=== PATIENT | female | born 1955 | race Caucasian/White ===

== ENCOUNTER → 2016-10-06 | Outpatient (CLI) | payer OTHER | LOC: BMCIMAGING 08:37 | DX: R93.8 Abnormal findings on diagnostic imaging of other specified body structures (principal); N95.0 Postmenopausal bleeding; N83.9 Noninflammatory disorder of ovary, fallopian tube and broad ligament, unspecified; N88.8 Other specified noninflammatory disorders of cervix uteri | CPT/HCPCS: G0202 ==

== ENCOUNTER → 2016-10-21 | Outpatient (CLI) | payer OTHER | LOC: BMCIMAGING 12:46 | DX: R92.8 Other abnormal and inconclusive findings on diagnostic imaging of breast (principal) | CPT/HCPCS: G0204 ==

== ENCOUNTER 2016-11-29 07:11 | Day surgery (SDC) | payer OTHER ==
[2016-11-29] MEDS ORDERED: LR 1,000 ML IV ONE (07:45)
[2016-11-29 07:59] LABS: % IMMATURE GRANULYOCYTES 0.2 % (0.0-1.1); ABSOLUTE IMMATURE GRANULOCYTES 0.02 10^3/uL (0.00-0.10); ADD DIFF? NO; ADD MORPH? NO; ADD SCAN? NO; ATYPICAL LYMPHOCYTE FLAG 0 (0-99); FRAGMENT RBC FLAG 0 (0-99); HEMATOCRIT 45.5 % (38.0-47.0); HEMOGLOBIN 15.6 g/dL (12.6-16.3); LEFT SHIFT FLG 0 (0-99); LIPEMIA HEMOLYSIS FLAG 90 (0-99); MEAN CELL HEMOGLOBIN 29.5 pg (27.9-34.1); MEAN CELL HEMOGLOBIN CONCENTR. 34.3 g/dL (32.4-36.7); MEAN CELL VOLUME 86.2 fL (81.5-99.8); MEAN PLATELET VOLUME 10.9 fL (8.7-11.7); PLATELET CLUMPS FLAG 10 (0-99); PLATELET COUNT 286 10^3/uL (150-400); RED BLOOD CELL COUNT 5.28 10^6/uL (4.18-5.33)
[2016-11-29] MEDS ORDERED: BUPIVACAINE 0.25% 30 ML SDV ONE (08:57)
[2016-11-29] MEDS ORDERED: SILVER NITRATE APPLICATOR 1 APPL TP ONE ×2 (08:57→11:43)
[2016-11-29 09:32] LABS: COLOR PALE YELLOW; LEUKOCYTE ESTERASE,URINE NEGATIVE (NEGATIVE); NITRITE,URINE NEGATIVE (NEGATIVE)
[2016-11-29] MEDS ORDERED: fentaNYL 100 MCG/2 ML INJ ONE ×3 (09:32→12:20)
[2016-11-29] MEDS ORDERED: PROPOFOL 200 MG/20 ML VIAL ONE (09:34)
[2016-11-29] MEDS ORDERED: OXYCODONE/APAP 5/325 TAB ONE (14:15)
--- NOTE | 2016-12-10 14:23 | GOP ---
[f rep st] OPERATIVE REPORT DATE OF OPERATION: 11/29/2016 SURGEON: Araceli Buckley MD ELECTRIC [employer]ZOR ASSEMBLER: None. ANESTHESIA: General. PREOPERATIVE DIAGNOSIS: 1. Complex left adnexal mass. 2. Endometrial mass. POSTOPERATIVE DIAGNOSIS: 1. Complex left adnexal mass. 2. Endometrial mass. PROCEDURE PERFORMED: 1. Laparoscopic bilateral salpingo-oophorectomy. 2. Hysteroscopy with dilation and curettage and hysteroscopic polypectomy and myomectomy. FINDINGS: 1. Normal right fallopian tube and ovary. 2. Abnormal left adnexal cyst that was attached to the lateral posterior uterine wall; appeared to be the suspected left ovary. No other fallopian tube was visualized and no connection to the left p elvic sidewall with an infundibular pelvic ligament noted. 3. The intrauterine cavity showed 2 small masses: 1 small polyp and mass close to the left ostia, and 1 larger mass close to the right ostia, that clinically seems consistent with a submucosal fibro id. SPECIMENS: 1. Right fallopian tube and ovary. 2. Left adnexal cyst. 1. Endometrial curettings and polyp and/or fibroid. 3. ESTIMATED BLOOD LOSS: Less than 25 cc. INDICATIONS: Patient is a 61-year-old, 3, para 1, abortus 2 menopausal female on bio-identi eb hormones, who presented with vaginal bleeding and was noted to have an endometrial mass found on ultrasound, as well as a complex left adnexal cyst. She agreed to surgical management for further evaluation. DESCRIPTION OF PROCEDURE: Patient was taken to the operating room where general anesthesia was foun d to be adequate. Patient was prepared and draped in normal sterile fashion in the dorsal lithotomy position. A weighted speculum was placed in the patient's vagina, and a Cartwright retractor used to vis ualize the cervix clearly. A single-toothed tenaculum was placed on the anterior lip of the cervix, and the cervix was gently dilated up to 6 mm using Hegar dilators. A 0 degree 5 mm TruClear hyster oscope was placed into the cervix and advanced into the uterine cavity without complications. The i ntrauterine cavity was visualized clearly, and 2 small masses were noted. The 2.9 morcellator was u sed to excise these masses under direct visualization. Due to the consistency and visualization of the removal, it was suspected that the right-sided mass was a fibroid. A visual D and C was then pe rformed using the morcellator. The hysteroscope was then removed, and a sharp curettage was perform ed circumferentially. All specimens were sent to Pathology. The acorn uterine manipulator was then placed into the cervix to provide a means to manipulate the uterus, and attention was then turned t o the patient's abdomen. All operating personnel then changed into new gowns and gloves, and attention was turned to the sandi ent's umbilicus. A 10 mm skin incision was made after injecting 0.25% Marcaine. The incision was m giovanny in a vertical fashion. A Veress needle was placed into the incision and into the peritoneal cav ity while tenting the abdominal wall. Intraperitoneal placement was confirmed with use of a water-f illed syringe and appropriate entry CO2 gas pressures. The abdomen was then insufflated with CO2 ga s to a pressure of 15 mmHg. The Veress needle was removed, and a 10 mm trocar was placed through th is incision into the peritoneal cavity under direct visualization with the laparoscope. There were no complications with entry. Attention was turned to the patient's left side where, after injection of 0.25% Marcaine, a 5 mm tro car was placed 2 cm superior and anterior to the anterior iliac spine on the left side. In a simila r fashion, a trocar was placed on the right side. First the right tube was grasped with a grasper a nd then excised using the gyrus cautery, laterally to medially, excising the right tube and ovary. All pedicles were hemostatic, and specimen was placed in the anterior cul-de-sac. Attention was turned to the left adnexal cyst. It was clear that the cyst was attached to the poste rolateral uterine wall, and there was no clear plane of dissection between them. There were some fi lmy adhesions overlying the cyst, which were taken down using the [place]'s and cautery. The cyst was then excised from the uterine wall using the gyrus cautery. There was some leakage of fluid fro m the cyst during this dissection, and the dissection was then continued easily to remove it from al l its attachments. There was no clear connection between the cyst and the infundibular pelvic ligam ent on the left side, nor was there a clear fallopian tube on this side identified. As the mass was excised, entry into the cavity was made, and it was excised from its attachments to the posterior u terine wall. There was an area of indentation into the uterine wall that appeared connected to the cyst, and there was no clear plane of dissection between this possible cyst tissue and the uterus; t hus, it was left alone. All areas of dissection were hemostatic. The specimens were removed in sep arate EndoCatch bags and sent to Pathology. All the pedicles were evaluated and found to be hemosta tic. The trocars were then removed from the abdomen. The gas was allowed to escape. The fascia of the 10 mm incision was then closed with a [id number] stitch of 0 Vicryl. All skin incisions w ere then closed with a subcuticular stitch of 4-0 Monocryl. Steri-Strips and bandage dressings were placed. All instruments were removed from the patient's vagina, and hemostasis was obtained at the tenaculum site with silver nitrate. All sponge, lap, and needle counts correct x2. Patient was transferred to the PACU in stable and go od condition. COMPLICATIONS: None. IV FLUIDS: 1800 cc. URINE OUTPUT: 300 cc. /[id number]/MODL
== END 2016-11-29 14:33 | disposition home or self-care (01) ==
LOC: FSGY 07:11
PROVIDERS: ATTEND Obstetrics & Gynecology
PROC: 0UB98ZX Excision of Uterus, Via Natural or Artificial Opening Endoscopic, Diagnostic (ICD-10-PCS; principal; 2016-11-29 08:30)
PROC: 0UB24ZZ Excision of Bilateral Ovaries, Percutaneous Endoscopic Approach (ICD-10-PCS; principal; 2016-11-29 08:30)
PROC: 0UB74ZZ Excision of Bilateral Fallopian Tubes, Percutaneous Endoscopic Approach (ICD-10-PCS; principal; 2016-11-29 08:30)
DX: N84.0 Polyp of corpus uteri (principal); N83.292 Other ovarian cyst, left side; D27.1 Benign neoplasm of left ovary
CPT/HCPCS: 58558; 58661; C1782; J2704; J3010

== ENCOUNTER → 2017-05-31 | Outpatient (CLI) | payer OTHER | LOC: FIMAGING 14:44 | PROVIDERS: ATTEND Obstetrics & Gynecology | DX: R92.0 Mammographic microcalcification found on diagnostic imaging of breast (principal) | CPT/HCPCS: G0206 ==

== ENCOUNTER → 2017-10-11 | Outpatient (CLI) | payer OTHER | LOC: FIMAGING 14:46 | PROVIDERS: ATTEND Obstetrics & Gynecology | DX: R92.8 Other abnormal and inconclusive findings on diagnostic imaging of breast (principal) ==

== ENCOUNTER → 2017-11-01 | Outpatient (CLI) | payer OTHER | LOC: FIMAGING 13:34 | PROVIDERS: ATTEND Obstetrics & Gynecology | DX: D25.0 Submucous leiomyoma of uterus (principal) ==

== ENCOUNTER → 2018-11-22 | Outpatient (CLI) | payer OTHER | LOC: FIMAGING 14:03 | PROVIDERS: ATTEND Obstetrics & Gynecology | DX: Z12.31 Encounter for screening mammogram for malignant neoplasm of breast (principal) ==

== ENCOUNTER → 2018-11-30 | Outpatient (CLI) | payer OTHER | LOC: FIMAGING 12:36 | PROVIDERS: ATTEND Obstetrics & Gynecology | DX: R92.0 Mammographic microcalcification found on diagnostic imaging of breast (principal) ==